=== PATIENT | female | born 1990 | race African-American/Black ===

== ENCOUNTER 2018-01-05 16:24 | Emergency (ER) | payer OTHER ==
[~2018-01-05] VITALS: Ht 175.3 cm; Wt 81.6 kg
== END 2018-01-05 19:40 | disposition home or self-care (01) ==
LOC: ER 16:24
DX: S00.83XA Contusion of other part of head, initial encounter (principal); W18.39XA Other fall on same level, initial encounter; Y93.G2 Activity, grilling and smoking food; Y92.89 Other specified places as the place of occurrence of the external cause; Y99.8 Other external cause status